=== PATIENT | male | born 2000 | race Caucasian/White ===

== ENCOUNTER 2022-07-18 11:38 | Emergency (ER) | payer OTHER, SELFPAY ==
--- NOTE | 2022-07-18 11:41 | ED.URI ---
HPI - URI/Sore Throat General Chief Complaint: Upper Respiratory Infection Stated Complaint: sore throat Time Seen by Provider: 07/18/22 11:41 Source: patient, family and RN notes reviewed History of Present Illness HPI Narrative: Patient is a 21-year-old male who presents to the Urgent Care with his mother with complaints of his mouth hurting since last night. Patient has not taken anything [id number] for his symptoms. Denies any known exposures, fever, nausea or vomiting. No other acute complaints. No acute distress noted. Patient aware of the plan of care. Some parts of this dictation were generated by voice recognition software and may contain typographical and/or grammatical inaccuracies. Related Data Home Medications Medication Instructions Recorded Confirmed duloxetine 30 mg capsule,delayed mg PO 07/18/22 release montelukast 10 mg tablet mg 07/18/22 trazodone 50 mg tablet mg 07/18/22 Allergies Allergy/AdvReac Type Severity Reaction Status Date / Time No Known Allergies Allergy Verified 07/18/22 11:48 Review of Systems Review of Systems: CONSTITUTIONAL: Denies fever, chills, or sweats. EYES: Denies visual changes, redness, or discharge. ENT: Denies rhinorrhea, congestion, Otalgia. Reports as his mouth hurting and sore throat CARDIOVASCULAR: Denies chest pain, palpitations, or edema. RESPIRATORY: Denies cough or dyspnea. GASTROINTESTINAL: Denies abdominal pain, nausea, vomiting, or diarrhea. GENITOURINARY: Denies dysuria or hematuria. SKIN: Denies rash or itching. MUSCULOSKELETAL: Denies back pain, joint pain, or myalgia. NEUROLOGIC: Denies headache, numbness, or weakness. All other systems reviewed are negative, except as documented in HPI. PMFSH Comments At the time of my signature, I reviewed and agree with the nursing past medical, surgical, social, and family history. There is no relevant family history pertinent to the patient complaint. Exam Narrative: GENERAL: This is a well-nourished, well-developed patient, in no apparent distress. HEAD: normocephalic, atraumatic. EYES: PERRL. Sclera clear/white. Vision is grossly intact. EARS: External ears normal, auditory canals clear and without drainage, TMs normal without perforation. Hearing grossly intact. NOSE: External nose normal with no obvious nasal discharge, nares without redness, no rhinorrhea. THROAT: Mucous membranes moist. Mild erythema noted to posterior oropharynx without exudate or ulceration. Moderate postnasal drainage. NECK: Neck supple, non-tender without lymphadenopathy CARDIOVASCULAR: Regular rate and rhythm without murmurs, gallops, or rubs. RESPIRATORY: Clear to auscultation. Breath sounds equal bilaterally. No wheezes, rales, or rhonchi. SKIN: warm, intact with no suspicious lesions or rash, good texture and turgor. NEURO: awake, alert, and oriented to person, place and time. There were no obvious focal neurologic abnormalities. EXTREMITIES: No clubbing, cyanosis, or edema. Course Course Level of Care: Express Care Visit Vital Signs Vital signs: Vital Signs Temperature 97.5 F L 07/18/22 11:44 Pulse Rate 86 07/18/22 11:44 Respiratory Rate 14 07/18/22 11:44 Blood Pressure 128/63 07/18/22 11:44 Pulse Oximetry 100 07/18/22 11:44 Oxygen Delivery Room Air 07/18/22 11:44 Temperature 97.5 F L 07/18/22 11:44 Pulse Rate 86 07/18/22 11:44 Respiratory Rate 14 07/18/22 11:44 Blood Pressure 128/63 07/18/22 11:44 Pulse Oximetry 100 07/18/22 11:44 Oxygen Delivery Room Air 07/18/22 11:44 Reviewed MDM - URI/Sore Throat MDM Narrative Medical decision making narrative: Due to the lack of resources, the facility is unable to complete a rapid strep test. Therefore, we will send a culture for strep to the lab and call if medication is necessary, based on culture results. The facility will only call if antibiotics are required. Advised patient to take a daily antihist
[2022-07-18 11:44] VITALS: BP 128/63; PULSE 86; RESP 14; TEMP 36.4; O2SAT 100
== END 2022-07-18 12:13 | disposition home or self-care (01) ==
PROVIDERS: Emergency Provider Nurse Practitioner Family; PCP Family Medicine
DX: J02.9 Acute pharyngitis, unspecified (principal)
CPT/HCPCS: 87081; 99212; 99213; G0463